=== PATIENT | female | born 1975 | race Caucasian/White ===

== ENCOUNTER 2017-03-28 21:54 | Emergency (ER) | payer SELFPAY ==
[2017-03-28 22:00] VITALS: BP 146/97; PULSE 86; RESP 16; TEMP 98.3; O2SAT 100
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
== END 2017-03-28 23:52 | disposition home or self-care (01) ==
LOC: H.ER 21:54
DX: S02.2XXA Fracture of nasal bones, initial encounter for closed fracture (principal); S09.90XA Unspecified injury of head, initial encounter; Y04.0XXA Assault by unarmed brawl or fight, initial encounter; Y92.89 Other specified places as the place of occurrence of the external cause
CPT/HCPCS: 70450; 70486; 81025; 96372; 99282; J2405

== ENCOUNTER 2018-01-07 13:07 | Emergency (ER) | payer SELFPAY ==
[2018-01-07 13:53] VITALS: BP 131/92; PULSE 74; RESP 18; TEMP 97; O2SAT 100
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
== END 2018-01-07 15:24 | disposition home or self-care (01) ==
LOC: H.ER 13:07
DX: R51 Headache (principal); M54.9 Dorsalgia, unspecified

== ENCOUNTER 2018-11-25 20:58 | Emergency (ER) | payer SELFPAY ==
[2018-11-25 21:18] VITALS: TEMP 98
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
[2018-11-26 00:03] VITALS: BP 134/83; PULSE 77; RESP 16
[2018-11-26 00:16] VITALS: O2SAT 99
--- NOTE | 2018-11-26 08:32 | CT ---
Date of service: 11/25/2018 PROCEDURE: CT HEAD WITHOUT CONTRAST. HISTORY: fall onto face, + occipital SALVADOR COMPARISON: Noncontrast head CT performed 03/28/17 TECHNIQUE: Axial computed tomography images were obtained through the head/brain without intravenous contrast. Radiation dose: Total exam DLP = 769.12 mGy-cm. This CT exam was performed using one or more of the following dose reduction techniques: Automated exposure control, adjustment of the mA and/or kV according to patient size, and/or use of iterative reconstruction technique. FINDINGS: HEMORRHAGE: No intracranial hemorrhage. BRAIN: No mass effect or edema. No atrophy or chronic microvascular ischemic changes. VENTRICLES: No hydrocephalus. CALVARIUM: Unremarkable. PARANASAL SINUSES: Unremarkable as visualized. No significant inflammatory changes. MASTOID AIR CELLS: Unremarkable as visualized. No inflammatory changes. OTHER FINDINGS: Small midline facial soft tissue hematoma. IMPRESSION: No acute intracranial pathology identified. Small midline facial soft tissue hematoma. Preliminary impression was provided by [facility].
--- NOTE | 2018-11-26 09:07 | CT ---
Date of service:11/25/2018 CT maxillofacial bones without IV contrast Indication: fall onto face + swelling on forehead Comparison: Maxillofacial noncontrast CT performed 03/28/17. Technique: Axial computed tomography images were obtained of the maxillofacial bones without the use of intravenous contrast. Coronal and sagittal reformatted images were generated and reviewed. This CT exam was performed using 1 or more of the following dose reduction techniques: Automated exposure control, adjustment of the MAA and/or kV according to patient size, and/or use of iterative reconstruction technique. Radiation dose: Total exam DLP = 821.77 mGy-cm. Findings: Midline facial soft tissue swelling. Comminuted mildly displaced right nasal bone fracture deformity. The remainder of the visualized facial bones appear unremarkable without acute displaced fracture. The orbits appear unremarkable. The temporomandibular joints appear located. The mastoid air cells appear clear. The paranasal sinuses appear clear. The visualized brain appears unremarkable. The soft tissues appear unremarkable. Straightening of the normal cervical lordosis may be related to muscle spasm or positioning. Congenital partial fusion of C2-C3, anatomic variant. Impression: Community mildly displaced right nasal bone fracture deformity. Midline facial soft tissue swelling. Straightening of the normal cervical lordosis may be related to muscle spasm or positioning. Congenital partial fusion of C2-C3, anatomic variant. Preliminary impression was provided by [facility].
== END 2018-11-26 00:22 | disposition home or self-care (01) ==
LOC: H.ER 20:58
DX: S00.91XA Abrasion of unspecified part of head, initial encounter (principal); S02.2XXA Fracture of nasal bones, initial encounter for closed fracture; S00.83XA Contusion of other part of head, initial encounter; W01.0XXA Fall on same level from slipping, tripping and stumbling without subsequent striking against object, initial encounter